=== PATIENT | female | born 1975 | race Hispanic/Latino ===

== ENCOUNTER 2018-11-18 19:47 | Emergency (ER) | payer OTHER | END 2018-11-18 21:04 | disposition home or self-care (01) | LOC: EDH 19:47 | DX: H65.91 Unspecified nonsuppurative otitis media, right ear (principal); J06.9 Acute upper respiratory infection, unspecified; E11.9 Type 2 diabetes mellitus without complications; Z88.0 Allergy status to penicillin | CPT/HCPCS: 99281 ==